=== PATIENT | male | born 1945 | race Hispanic/Latino ===

== ENCOUNTER → 2018-06-08 | Outpatient (CLI) | payer MEDICARE ==
[~2018-06-08] MED LIST: IOPAMIDOL 370 MG/ML 200 ML INFUS..BTL INJ ONE; SODIUM CHLORIDE 0.9% 50ML 50 ML ONE
[2018-06-08 16:20] LABS: BLOOD UREA NITROGEN 15 mg/dL (7-26); BUN/CREATININE RATIO 17 (6-25); CREATININE, SERUM 0.88 mg/dL (0.72-1.25); EST GLOMERULAR FILTRATION RATE > 60 ML/MIN (60-)
--- NOTE | 2018-06-08 18:21 | Diagnostic Imaging Report ---
CT Abdomen And Pelvis with Intravenous Contrast INDICATION: ^[id number] ^[id number] ^UPPER ABDOMEN PAIN TECHNIQUE: Thin collimation axial images obtained from the diaphragm to the level of the pubic symphysis following the uneventful administration of 100 cc of low osmolar, nonionic intravenous contrast. Dose reduction techniques used: Automated exposure control, adjustment of the mAs and/or kVp according to patient size, standardized low-dose protocol, and/or iterative reconstruction technique. RADIATION DOSE: Total DLP: 751.33 mGy*cm Estimated effective dose: (DLP x 0.015 x size factor) mSv CTDIvol has been reviewed. It is below the limits set by the Radiation Protocol Committee (RPC). COMPARISON: None. ABDOMEN FINDINGS: Lung Bases: Punctate calcification over the dome of the right diaphragm. No soft tissue mass in the lung bases. Visualized portion of the heart demonstrates aortic and mitral valve calcifications and coronary artery calcifications. The heart is not enlarged. No pericardial effusion. Liver: Decreased attenuation consistent with steatosis. No evidence for mass. Gallbladder: Present and appears normal. No biliary ductal dilatation. Pancreas: Mild fatty atrophy without mass or ductal dilatation.. Spleen: Normal in size. No evidence of mass.. Adrenal Glands: No evidence for mass. Kidneys: Right: Scarring of the interpolar cortex. No soft tissue mass. No hydronephrosis. Left: A cyst in the posterior medial upper pole measures 3.3 x 3.2 cm. This has a subtle, linear hyperdensity at the 8:00 position on coronal images suggestive of a calcification, possibly within a septation (coronal image 81). No solid mass. No hydronephrosis. Lymph Nodes: No enlarged abdominal or periaortic lymph nodes. Aorta: Normal in diameter with scattered calcifications. PELVIS FINDINGS: Bowel: Stomach: Normal in caliber with normal wall thickness. Small Bowel: Normal in caliber with normal wall thickness. Large Bowel: Normal in caliber with normal wall thickness. Moderate burden of stool throughout. No evidence of diverticulosis Appendix: Normal appendix. Bladder: Underdistended with circumferential mural thickening. Prostate: Measures 4.7 x 5.6 cm in the axial plane.. Lymph nodes: No enlarged abdominal or retroperitoneal lymph nodes. Peritoneum: No free fluid or fluid collection. Bones: Mild degenerative changes in the lumbar spine. There are flowing anterior osteophytes in the lower thoracic spine which may represent DISH. No compression deformities or listhesis. Soft tissues: Ventral abdominal wall mesh from hernia repair. Fat-containing supraumbilical hernia at the linea alba has an aperture 7.2 cm and extends for approximately 4 cm in craniocaudal extent. No fluid in the hernia sac. No evidence of bowel containing hernia. IMPRESSION: 1. Moderate burden of stool throughout the colon. No bowel obstruction. Please correlate for signs/symptoms of constipation. 2. Steatosis. 3. Ventral abdominal wall hernia through the linea alba despite the presence of hernia mesh. This is concerning for hernia recurrence. Please correlate with clinical exam findings. 4. Left renal cysts with potential septation containing a punctate calcification. A septation can be confirmed with renal ultrasound. 5. Prostate hypertrophy with bladder wall thickening suggestive of outlet obstruction. Signed by: Dr. Octavia Menjivar MD on 06/08/2018 6:18 PM
== END ==
LOC: CT 15:19 → EDSEX 15:19
PROVIDERS: ATTEND Internal Medicine Gastroenterology
DX: R10.10 Upper abdominal pain, unspecified (principal); R14.0 Abdominal distension (gaseous); K59.00 Constipation, unspecified; I10 Essential (primary) hypertension; E66.9 Obesity, unspecified; Z71.3 Dietary counseling and surveillance; Z86.010 Personal history of colon polyps
CPT/HCPCS: 36415; 74177; 82565; 84520; Q9967